=== PATIENT | female | born 1955 | race Caucasian/White ===

== ENCOUNTER → 2018-01-31 | Outpatient (CLI) | payer BC, OTHER ==
[~2018-01-31] MED LIST: ANUHC30T PR; CLA500 PO; KET10 PO; LEVO112T43 PO; LISI-349 PO; PAN40 PO; PER PO; PRAV20TA65 PO
--- NOTE | 2018-02-01 15:23 | RADIOLOGY IMAGING REPORT ---
FACILITY: [facility] PATIENT NAME: CAREY SANCHEZ : [id number] MR: [id number] V: [id number] EXAM DATE: [id number] ORDERING PHYSICIAN: LUCY NAGEL TECHNOLOGIST: Jamee Dias PROCEDURE:BILATERAL DIGITAL SCREENING MAMMOGRAM WITH CAD ASSISTED INTERPRETATION & 3D TOMOSYNTHESIS COMPARISON:Prior mammograms 12/22/2016. INDICATIONS:SCREENING FINDINGS: Breast tissue demonstrates scattered fibroglandular tissue elements. There is no suspicious mass, calcification, or architectural distortion. There is a stable intramammary lymph node in the outer upper quadrant Left breast. DIAGNOSTIC CATEGORY 2--BENIGN FINDING. RECOMMENDATIONS: ROUTINE MAMMOGRAM AND CLINICAL EVALUATION. IMPRESSION: BIRADS 2: Benign finding. No mammographic evidence for malignancy. Dictated by: Neo Jefferson M.D. on 02/01/2018 at 10:17 Transcribed by: EVON on 02/01/2018 at 10:38 Approved by: Neo Jefferson M.D. on 02/01/2018 at 15:22 [facility]
== END ==
LOC: MAMO 03:26
PROVIDERS: ATTEND Family Medicine
DX: Z12.31 Encounter for screening mammogram for malignant neoplasm of breast (principal)
CPT/HCPCS: 77063; 77067